=== PATIENT | male | born 1950 | race Caucasian/White ===

== ENCOUNTER 2017-02-08 14:52 | Inpatient (IN) | payer OTHER, MEDICARE ==
[~2017-02-08] VITALS: Ht 162.6 cm; Wt 113.1 kg
[~2017-02-08 14:52] MED LIST: ASPI-730 PO; CLIN-89 PO; MULT1CAP47 PO; PRAV40TA46 PO
--- OUTSIDE RECORDS SUMMARY | 2017-02-08 14:58 | XMS REPORT | Continuity of Care Document ---
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 Name Role Phone JUVE GRIMES MD Primary Care Physician [phone] Insurance Providers Guarantor Terry Balderrama Address [address] [place] [id number] Email DENIED Payer Medicare Policy Number [id number] Subscriber's Name Terry Balderrama Relationship 18 Self Group Number [id number] Effective Date 08 Payer [facility] Policy Number [id number] Subscriber's Name Terry Balderrama Relationship 18 Self Group Number [id number] Chief Complaint and Reason for Visit Chief Complaint Skin Rash/Abscess/Injury Reason for Visit Cellulitis of left hand Problems Active Problems Medical Problem Onset Date Status Cellulitis of left hand Unknown Acute Medications Current Home Medications Medication Dose Units Route Directions Days Qty Instructions Start Date Aspirin 325 Mg Tablet 325 Mg Oral Daily 10/23/08 Clindamycin Hcl 150 Mg Capsule 3 Cap Oral Three Times A Day 7 Days 63 Capsule TAKE WITH A FULL GLASS OF WATER TO AVOID ESOPHAGEAL IRRITATION. Supervising physician Dr. Abraham Romero [employer] [facility] [address] [phone] 11/19/16 Multivitamins W-Minerals (Multivitamin) 1 Cap Capsule 1 Cap Oral Bedtime 10/26/08 Pravastatin Sodium 40 Mg Tablet 40 Mg Oral Bedtime 10/26/08 Social History Social History Problem Response Recorded Date/Time Onset Date Status Hx Alcohol Use Y occ. 05/14/2009 3:50pm Not Applicable Not Applicable Hospital Discharge Instructions No hospital discharge instructions. Plan of Care Discharge Date 11/19/16 1:58pm Disposition 01 DISCHARGED HOME, SELF-CARE Condition at Discharge Stable Instructions/Education Provided Cellulitis (ED) Forms Provided [facility] Work/School Permit Prescriptions See Medication Section Referrals JUVE GRIMES MD Address: [address] [place] [address] [place]ZO, DAVID [phone] Functional Status No functional status results. Allergies, Adverse Reactions, Alerts Allergen Type Severity Reaction Status Last Updated Bacitracin Allergy Unknown RASH Active 11/19/16 Yellow fever vaccine Allergy Intermediate SWELLING OF FEET Active 11/19/16 Polymyxin b Allergy Unknown RASH Active 11/19/16 Immunizations Query Response on File Recorded Date/Time Hx Influenza Vaccination Y fall05/14/09 3:50pm Hx Pneumococcal Vaccination Y 3 yrs ago 05/14/09 3:50pm Hx Influenza Vaccination Y fall05/14/09 3:50pm Influenza Vaccine Hx NO 11/19/16 1:19pm Tetanus Diptheria Vaccine History UP TO DATE 11/19/16 1:19pm Vital Signs Acute Vital Signs Vital Response Date/Time Temperature (Fahrenheit) 97.0 deg F (96.8 - 99.1) 11/19/2016 1:22pm Temperature (Calculated Celsius) 36.15094 degrees C (36.0 - 37.3) 11/19/2016 1:22pm Pulse Rate (adult) 87 bpm (60 - 100) 11/19/2016 1:22pm Respiratory Rate 24 breaths/min (10 - 20) 11/19/2016 1:22pm O2 Sat by Pulse Oximetry 96 % (90 - 100) 11/19/2016 1:22pm Blood Pressure 132/85 mm Hg 11/19/2016 1:22pm Height (Inches) 67.00 inches 11/19/2016 1:22pm Weight (Kilograms) 115.000 kg 11/19/2016 1:22pm Body Mass Index (BMI) 39.0 11/19/2016 1:22pm Results No known relevant diagnostic tests, laboratory data and/or discharge summary. Procedures No known history of procedures. Encounters Encounter Location Arrival/Admit Date Discharge/Depart Date Attending Provider Registered Emergency Room [facility] 11/19/16 1:11pm SAVANNA ROMERO APRN Recent Diagnosis
--- OUTSIDE RECORDS SUMMARY | 2017-02-08 14:58 | XMS REPORT | Continuity of Care Document ---
Author Author [facility] Organization [facility] Address Unknown Phone Unavailable Allergies Active Description Code Type Severity Reaction Onset Reported/Identified Relationship to Patient Clinical Status Yes bacitracin NKMA Severe HIVES/ITCHING 02/05/2014 Yes polymyxin B sulfate NKMA Severe HIVES/ITCHING 02/05/2014 Yes yellow fever vaccine NKMA Severe SPOTS ON FEET AND THEY SWELL 02/05/2014 Medications Problems Procedures Results Encounters ACCT No. Visit Date/Time Discharge Status Pt. Type Provider Facility Loc./Unit Complaint [id number] 12/09/2013 08:23:00 12/09/2013 23 :59:59 [facility] Outpatient [id number] 09/08/2013 08:19:00 09/08/2013 23 :59:59 [facility] Out[facility]
[2017-02-08 15:00] VITALS: PULSE 94; RESP 16
--- NOTE | 2017-02-08 15:00 | NUR ---
ADMIT PATIENT ARRIVES AT 1500 AMBULATORY. ADMITTED TO ROOM 141 FOR CELLULITIS. PATIENT DENIES PAIN OR ANY CONCERNS AT THIS TIME. DRESSING IS REMOVED FROM LEFT FOOT. WOUND CLINIC IS CONSULTED TO TREAT. PATIENT IS RA. NO DISTRESS NOTED.
[2017-02-08] MEDS ORDERED: MILK OF MAGNESIA 30 ML SUSP PO PRN (15:30)
[2017-02-08] MEDS ORDERED: MAG-AL + SIM LIQUID 30 ML UDC PO PRN (15:30)
[2017-02-08] MEDS ORDERED: ACETAMINOPHEN 325 MG TABLET PO PRN (15:30)
[2017-02-08] MEDS ORDERED: PRN ORDERS MC (15:30)
[2017-02-08] MEDS ORDERED: NITROGLYCERIN 0.4 MG SUBLINGUAL TABLET SL PRN (15:30)
[2017-02-08] MEDS ORDERED: ONDANSETRON 4mg/2ml INJECTION IV PRN (15:30)
[2017-02-08] MEDS ORDERED: BISACODYL 10 MG SUPPOSITORY RECTALLY PRN (15:30)
[2017-02-08 15:34] VITALS: Ht 162.6 cm; Wt 113.1 kg
[2017-02-08 15:36] VITALS: BP 162/74; PULSE 94; RESP 18; TEMP 96.7; O2SAT 95
[2017-02-08] MEDS ORDERED: NAPR220C11 PO (15:39)
[2017-02-08 16:01] LABS: BASOPHILS # (AUTO) 0.1 T/MM3 (0-0.2); BASOPHILS % (AUTO) 0.5 % (0-2); EOSINOPHILS # (AUTO) 0.4 T/MM3 (0-0.5); EOSINOPHILS % (AUTO) 2.8 % (0-4); HCT - HEMATOCRIT 42.6 % (41-53); HGB - HEMOGLOBIN 14.3 GM/DL (13.5-17.5); IMMATURE GRANULOCYTE # (AUTO) 0.08 T/MM3 (0.00-0.03); IMMATURE GRANULOCYTE % (AUTO) 0.6 % (0.0-0.5); LYMPHOCYTES # (AUTO) 2.5 T/MM3 (1-4.8); LYMPHOCYTES % (AUTO) 19.9 % (23-45); MEAN CORPUSCULAR HGB 30.7 UUG (26-34); MEAN CORPUSCULAR HGB CONC(MCHC 33.6 GM/DL (31-37); MEAN CORPUSCULAR VOLUME 91.4 UM3 (80-100); MEAN PLATELET VOLUME 7.9 UM3 (9.4-12.4); MONOCYTES # (AUTO) 1.1 T/MM3 (0-0.8); MONOCYTES % (AUTO) 9.1 % (0-9.0); NEUTROPHILS #(AUTO)-ABSOLUTE 8.4 T/MM3 (1.8-7.7); NEUTROPHILS % (AUTO) 67.1 % (33-66); RED BLOOD COUNT 4.66 M/MM3 (4.50-5.90); WBC - WHITE BLOOD COUNT 12.5 T/MM3 (4.5-11.0)
[2017-02-08 16:03] LABS: ALBUMIN 3.8 G/DL (3.5-5.0); ALKALINE PHOSPHATASE 93 U/L (38-126); ALT (SGPT) 54 U/L (21-72); ANION GAP 14 MEQ/L (5-15); AST (SGOT) 37 U/L (17-59); BUN/CREATININE RATIO 28 RATIO (6-26); CALCIUM 9.6 MG/DL (8.4-10.2); CHLORIDE 101 MEQ/L (98-107); CO2 - CARBON DIOXIDE 28 MEQ/L (22-30); CREATININE 0.8 MG/DL (0.8-1.5); GLOMERULAR FILTRATION RATE 97; GLUCOSE 141 MG/DL (75-110); SODIUM 143 MEQ/L (134-144); TOTAL PROTEIN 7.5 G/DL (6.3-8.2)
[2017-02-08 16:04] LABS: LACTATE - LACTIC ACID 1.3 MMOL/L (0.6-2.2)
--- NOTE | 2017-02-08 16:29 | HPPDOC ---
JORGE HUGO V [employer]GY SYSTEM INSTALLER 02/08/17 1609: HPI - Adult Date DATE: 02/08/17 TIME: 16:04 General Chief Complaint: LEFT lower ext ulcer History of Present Illness Patient is a 66-year-old male who presented to his primary care provider, Dr. Rl Sahu today for evaluation of ulcer to the left lower extremity. Patient has had a history of venous stasis ulcers in the past. He states that approximately 5 days ago he noticed a small blister in the medial aspect of the left foot. He states that he started wearing his compression stockings and popped the blister. Over the last 48 hours. This area has become more red, swollen and tender. Today he was unable to ambulate without significant pain. Thus presented to primary care for further evaluation and treatment. [facility], however, due to the concern for further inpatient workup. The hospitalist services were contacted directly and accepted patient for direct admission as an inpatient for further eval patient and treatment. It is expected that his stay will be greater than 2 overnights. Initial laboratory studies were obtained on admission. Was found to have an elevated white count at 12.5, hemoglobin 14.3, hematocrit 42.6, platelet count 282, 67% neutrophils. Sodium is normal at 143, potassium 4.0, BUN 22, creatinine 0.8, glucose 141. Venous lactate is normal at 1.3, pro- calcitonin is pending. Past Medical History Past Medical History Hypertension. BPH Hyperlipidemia Depression History of venous stasis ulcer to the right lower extremity. COPD Metabolic syndrome Obstructive sleep apnea. Chronic tobacco dependence. History of renal artery aneurysm Fatty liver disease History of DVT Surgical History Patient's Surgical History: Right inguinal hernia repair-02/2008 (Dr. Mckinney) Right ruptured appendectomy-06/2008 (Dr. Mckinney) Colonoscopy-2008 Current Medications Home Meds Active Scripts Clindamycin HCl (Clindamycin HCl) 150 Mg Capsule, 3 CAP PO TID for 7 Days, #63 CAP TAKE WITH A FULL GLASS OF WATER TO AVOID ESOPHAGEAL IRRITATION. Supervising physician Dr. Abraham Romero Clinical Quality Analyst [facility] [address] [phone] Prov:SAVANNA ROMERO [employer] SYSTEM INST[employer]ER 11/19/16 Reported Medications Naproxen Sodium (Aleve) 220 Mg Capsule, 1 CAP PO Y for PAIN, CAP 5/4/17 Multivitamins W-Minerals (Multivitamin) 1 Cap Capsule, 1 CAP PO HS 10/26/08 Aspirin (Aspirin) 325 Mg Tablet, 325 MG PO DAILY 10/23/08 Pravastatin Sodium (Pravastatin Sodium) 40 Mg Tablet, 40 MG PO HS 10/26/08 Allergies: Coded Allergies: yellow fever vaccine live (Verified Allergy, Intermediate, SWELLING OF FEET, 11/19/16) bacitracin (Verified Allergy, Unknown, RASH, 11/19/16) polymyxin B (Verified Allergy, Unknown, RASH, 11/19/16) Family History Family History: Mother-bowel obstruction. Father-coronary artery disease with cardiac bypass. Sister- Jeanne Gehrig's disease. Niece- MS Social History Smoking Status: Current every day smoker # of Packs/Tins per Day: 0.5 # of Years: 50 Substance Use Type: does not use Alcohol Intake: none Housing: house Advance Directives: Yes Full Code, No DPOA for Healthcare Only Social History Comments PCP Dr. Rl Sahu General Surgeon- Dr. Mckinney Review of Systems Integumentary Skin: see HPI, ulcers (left medial malleolus) All Other Systems All Other Systems: Reviewed (remainder of 10-point ROS Neg.) Physical Exam General General Nourishment: well nourished, well developed Vital Signs Vital Signs Date Time Temp Pulse Resp B/P Pulse Ox O2 Delivery O2 Flow Rate FiO2 02/08/17 15:36 96.7 94 18 162/74 95 Room Air Height (Feet): 5 Height (Inches): 4.00 Eyes Brief: FOUND: EOMI Respiratory Brief: FOUND: clear all martines, equal bilaterally Cardiovascular (brief) Cardiac Brief: FOUND: pedal edema (L>R referral edema), regular rate, regular rhythm, NOT FOUND: murmur Abdomen (brief) Abdominal Brief: FOUND: BS normo active x4, soft, NOT FOUND: distended, tender Integumentary (brief) Integumentary Brief: FOUND: dry, pink, warm Neurologic (brief) Neurological Brief: FOUND: cranial 2-12 intact Neurologic RN Documented GCS Eye Opening: Verbal: Motor: Total: Psychiatric (brief) FOUND: alert, attentive, normal affect, oriented Laboratory Laboratory Tests Test 02/08/17 15:38 White Blood Count 12.5T/MM3 Red Blood Count 4.66M/MM3 Hemoglobin 14.3GM/DL Hematocrit 42.6% Mean Corpuscular Volume 91.4UM3 Mean Corpuscular Hemoglobin 30.7UUG Mean Corpuscular Hemoglobin Concent 33.6GM/DL RDW Standard Deviation 50.1FL Platelet Count 282T/MM3 Mean Platelet Volume 7.9UM3 Immature Granulocyte % (Auto) 0.6% Neutrophils (%) (Auto) 67.1% Lymphocytes (%) (Auto) 19.9% Monocytes (%) (Auto) 9.1% Eosinophils (%) (Auto) 2.8% Basophils (%) (Auto) 0.5% Absolute Immature Granulocyte (auto 0.08T/MM3 Absolute Neutrophils (auto) 8.4T/MM3 Absolute Lymphocytes (auto) 2.5T/MM3 Absolute Monocytes (auto) 1.1T/MM3 Absolute Eosinophils (auto) 0.4T/MM3 Absolute Basophils (auto) 0.1T/MM3 Turbidity < 20 Sodium Level 143MEQ/L Potassium Level 4.0MEQ/L Chloride Level 101MEQ/L Carbon Dioxide Level 28MEQ/L Anion Gap 14MEQ/L Blood Urea Nitrogen 22.0MG/DL Creatinine 0.8MG/DL Glomerular Filtration Rate Calc 97 BUN/Creatinine Ratio 28RATIO Glucose Level 141MG/DL Calculated Osmolality 280MOSM/KG Calcium Level 9.6MG/DL Magnesium Level 2.0MG/DL Total Bilirubin 0.50MG/DL Icterus Index < 2 Aspartate Amino Transf (AST/SGOT) 37U/L Alanine Aminotransferase (ALT/SGPT) 54U/L Alkaline Phosphatase 93U/L Total Protein 7.5G/DL Albumin 3.8G/DL Globulin 3.7G/DL Albumin/Globulin Ratio 1.0RATIO Plasma Lactate 1.3MMOL/L Chemistry Specimen Hemolysis < 15 Sepsis Diagnostic Criteria Sepsis Confirmed/Suspected Infection: Yes SIRS Criteria: WBC >=12,000 or <=4,000 Assessment & Plan Problems: (1) Ulcer of lower extremity Status: Acute Qualifiers: Laterality: left Non-pressure ulcer stage: unspecified non-pressure ulcer stage Qualified Codes: L97.929 - Non-pressure chronic ulcer of unspecified part of left lower leg with unspecified severity (2) Cellulitis Status: Acute Qualifiers: Site of cellulitis of extremity: lower extremity Laterality: left (3) Leukocytosis Status: Acute Assessment & Plan: Present on admission (4) Hypertension Status: Chronic (5) Hyperlipidemia Status: Chronic (6) COPD (chronic obstructive pulmonary disease) Status: Chronic (7) Obstructive sleep apnea Status: Chronic (8) BPH (benign prostatic hyperplasia) Status: Chronic (9) Tobacco dependence Status: Chronic (10) Renal artery aneurysm Status: Resolved (11) History of DVT (deep vein thrombosis) Status: Resolved Plan/Intensity of Service Admit patient to inpatient status under the care of Dr. Lang for venous stasis of left lower extremity with cellulitis. Obtain the following laboratory studies on admission. CBC, CMP, venous lactate, pro calcitonin, magnesium, blood culture, pro calcitonin. Also obtain a hemoglobin A1c for laboratory completeness. Initiate patient on the fluoroscopy IV every 12 hours for antimicrobial coverage. Wound team consultation placed for further evaluation and treatment recommendations. Will obtain a venous Doppler of the left lower extremity to rule out acute DVT. Will's criteria score 5 out of 9 with a 53% likelihood of acute thrombosis Lovenox subcutaneous daily for DVT prophylaxis. Zofran as needed for nausea and [place] available as needed for pain control. He may use home CPAP. Given history of sleep apnea Will recheck CBC and BMP tomorrow morning to follow blood counts, renal function and electrolytes Will discuss further plan of care with attending, Dr. Lang. At time of discharge medical care will return to primary care provider, Dr. Sahu DVT Prophylaxis: Lovenox Code Status Full Code, unverified Hospital Course Summary Disclaimer The hospital course summary below is not to be considered part of the above Progress Note. Hospital Course Summary Admit patient to inpatient status under the care of Dr. Lang for venous stasis of left lower extremity with cellulitis. Obtain the following laboratory studies on admission. CBC, CMP, venous lactate, pro calcitonin, magnesium, blood culture, pro calcitonin. Also obtain a hemoglobin A1c for laboratory completeness. Initiate patient on the fluoroscopy IV every 12 hours for antimicrobial coverage. Wound team consultation placed for further evaluation and treatment recommendations. Will obtain a venous Doppler of the left lower extremity to rule out acute DVT. Will's criteria score 5 out of 9 with a 53% likelihood of acute thrombosis Lovenox subcutaneous daily for DVT prophylaxis. Zofran as needed for nausea and [place] available as needed for pain control. He may use home CPAP. Given history of sleep apnea Will recheck CBC and BMP tomorrow morning to follow blood counts, renal function and electrolytes Will discuss further plan of care with attending, Dr. Lang. At time of discharge medical care will return to primary care provider, YEISON Baugh MD 02/08/17 2017: Past Medical History Current Medications Home Meds Active Scripts Clindamycin HCl (Clindamycin HCl) 150 Mg Capsule, 3 CAP PO TID for 7 Days, #63 CAP TAKE WITH A FULL GLASS OF WATER TO AVOID ESOPHAGEAL IRRITATION. Supervising physician Dr. Abraham Romero Clinical Quality Analyst [facility] [address] [phone] Prov:SAVANNA ROMERO [place] [employer] SYSTEM INST[employer]ER 11/19/16 Reported Medications Naproxen Sodium (Aleve) 220 Mg Capsule, 1 CAP PO Y for PAIN, CAP 02/08/17 Multivitamins W-Minerals (Multivitamin) 1 Cap Capsule, 1 CAP PO HS 10/26/08 Aspirin (Aspirin) 325 Mg Tablet, 325 MG PO DAILY 10/23/08 Pravastatin Sodium (Pravastatin Sodium) 40 Mg Tablet, 40 MG PO HS 10/26/08 Allergies: Coded Allergies: yellow fever vaccine live (Verified Allergy, Intermediate, SWELLING OF FEET, 11/19/16) bacitracin (Verified Allergy, Unknown, RASH, 11/19/16) polymyxin B (Verified Allergy, Unknown, RASH, 11/19/16) Assessment & Plan Plan/Intensity of Service Have independently interviewed and examined pt. Chart reviewed. 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 Care plan developed with my supervision; agree with above. Developed a small blister on his left lower leg about 5 days ago. No pain or itching. Some increase LE edema, so resumed use of his support hose. Unfortunately, that opened up the blister. Has had significant problems in past with venous stasis ulcers and slow healing. Went in promptly to clinic for evaluation. WBC with elevation. Lymph nodes present in groin. Inpatient admission sought to speed resolution of healing of his ulcer and cellulitis. No leg pain. Not having f/c. Breathing stable without increased SOA or cough. No hemoptysis. Denies chest pressure, pain, palpitations. Bowel stable. No falls or trauma. Lungs: decreased CV: regular AB: soft Obese NT/ND +BS EXT: left leg wrapped in CHEL from wound team MSE: awake alert appropriate Plan: Inpatient admission. Teflaro for wound coverage and cellulitis. Wound Team evaluation. Tobacco cessation. Doppler to exclude clot due to edema. Monitor lab. JORGE HUGO APRN February 08, 2017 16:09 YEISON LANG MD February 08, 2017 20:17
[2017-02-08] MEDS ORDERED: HYDROCODONE/APAP 5 mg/325 mg TABLET PO PRN (16:30)
[2017-02-08 16:42] VITALS: PULSE 94; RESP 18; O2SAT 95
--- NOTE | 2017-02-08 17:00 | PDWOUND ---
Wound Documentation Wound Management Wound : Location Modifier: Left, Medial Wound Location: Ankle Wound Type: Stasis Ulcer Wound Dressing Frequency: two times per week Wound Duration: 3 days Wound Dressing Status: FOUND: Moist Wound Drainage Amount: Moderate Wound Drainage Description: Serous Wound Drainage Odor: None/Absent Wound General Appearance: FOUND Unapproximated Wound Bed: gran red Periwound Description: Bright Red, Shiny Wound Length (cm): 2.5 Wound Width (cm): 2 Wound Depth (cm): 0.1 Exposed: partial Wound Cleanser: NS Wound Primary Dressing Type: Aquacel AG, Mepilex, Jim Wraps Comments Pt is know to the wound clinic for Venous Leg Ulcers, at this time pt has a new open wound venous. Wound cleaned, Aqacell AG applied to wound bed and covered with Mepilex. Jim wraps applied for compression. KANDI DIAZ RN February 08, 2017 17:00
[2017-02-08] MEDS: CEFTAROLINE IV SCH (17:24)
[2017-02-08] MEDS: NORMAL SALINE IV SCH (17:24)
[2017-02-08] MEDS: ENOXAPARIN 40 MG/0.4 ML INJECTION SQ SCH (17:25)
--- NOTE | 2017-02-08 18:20 | NUR ---
STATUS PATIENT IS RESTING IN BED IN NO APPARENT DISTRESS. WOUND CLINIC HAS ADDRESSED THE PATIENT'S WOUND. ULTRA SOUND HAS BEEN AT BED SIDE FOR DVT R/O TO LLE. PATINE HAS NO CONCERNS AT THIS TIME.
[2017-02-08] MEDS: PRAVASTATIN 40 MG TABLET PO SCH (21:13)
[2017-02-08 21:55] VITALS: PULSE 78
[2017-02-09 00:03] VITALS: BP 128/68; PULSE 87; RESP 18; TEMP 98; O2SAT 92
[2017-02-09] MEDS: CEFTAROLINE IV SCH ×2 (03:52→15:17)
[2017-02-09] MEDS: NORMAL SALINE IV SCH ×2 (03:52→15:17)
[2017-02-09 05:21] LABS: BASOPHILS # (AUTO) 0.1 T/MM3 (0-0.2); BASOPHILS % (AUTO) 0.5 % (0-2); EOSINOPHILS # (AUTO) 0.3 T/MM3 (0-0.5); EOSINOPHILS % (AUTO) 3.1 % (0-4); HCT - HEMATOCRIT 42.5 % (41-53); IMMATURE GRANULOCYTE # (AUTO) 0.12 T/MM3 (0.00-0.03); IMMATURE GRANULOCYTE % (AUTO) 1.1 % (0.0-0.5); LYMPHOCYTES # (AUTO) 2.7 T/MM3 (1-4.8); LYMPHOCYTES % (AUTO) 24.5 % (23-45); MEAN CORPUSCULAR HGB 30.4 UUG (26-34); MEAN CORPUSCULAR HGB CONC(MCHC 32.9 GM/DL (31-37); MEAN CORPUSCULAR VOLUME 92.2 UM3 (80-100); MEAN PLATELET VOLUME 8.1 UM3 (9.4-12.4); MONOCYTES # (AUTO) 1.1 T/MM3 (0-0.8); MONOCYTES % (AUTO) 9.6 % (0-9.0); NEUTROPHILS #(AUTO)-ABSOLUTE 6.7 T/MM3 (1.8-7.7); NEUTROPHILS % (AUTO) 61.2 % (33-66); RED BLOOD COUNT 4.61 M/MM3 (4.50-5.90)
[2017-02-09 05:30] LABS: ANION GAP 10 MEQ/L (5-15); BUN/CREATININE RATIO 28 RATIO (6-26); CALCIUM 9.6 MG/DL (8.4-10.2); CHLORIDE 103 MEQ/L (98-107); CO2 - CARBON DIOXIDE 30 MEQ/L (22-30); CREATININE 0.9 MG/DL (0.8-1.5); GLOMERULAR FILTRATION RATE 85; GLUCOSE 129 MG/DL (75-110); POTASSIUM 3.7 MEQ/L (3.6-5); SODIUM 143 MEQ/L (134-144)
--- NOTE | 2017-02-09 06:45 | NUR ---
SUMMARY PT SLEPT WELL THIS SHIFT. USED HIS CPAP FROM AROUND MIDNIGHT. NO PRN MEDICATION GIVEN THIS SHIFT. REPORTED PAIN 2/10 ON HER LOWER EXTREMITIES THAT HE IS TOLERATING. PT IS UP AD ABIMBOLA IN THE ROOM. TOILETS HIMSELF WITH NO DIFFICULTY. EDUCATED ABOUT CALL LIGHT AND PT SAFETY.
[2017-02-09 07:19] VITALS: BP 133/74; PULSE 83; RESP 16; TEMP 96.5; O2SAT 92
[2017-02-09 07:55] LABS: BLOOD, URINE NEGATIVE (NEGATIVE); COLOR,URINE YELLOW (YELLOW); LEUKOCYTE ESTERASE ,URINE NEGATIVE (NEGATIVE); NITRITE,URINE NEGATIVE (NEGATIVE); UROBILINOGEN,URINE 0.2 EU/DL (NORMAL)
[2017-02-09] MEDS: ASPIRIN 325 MG TABLET PO SCH (08:18)
[2017-02-09] MEDS: ENOXAPARIN 40 MG/0.4 ML INJECTION SQ SCH (08:19)
--- NOTE | 2017-02-09 08:47 | DI ---
Indication: ITS.REASON: LLE swelling, erythema PROCEDURE: US VENOUS DUPLEX, LOWER EXT LT: Encounter: Initial Comparison: None Technique: Color Doppler duplex and grayscale sonographic imaging of the left lower extremity was performed. Findings: There is no evidence for acute deep venous thrombosis in the left thigh. Specifically, serial graded compression was performed from the inguinal ligament to the popliteal bifurcation, on the left thigh, demonstrating appropriate compressibility of the deep venous system. In addition, color and pulsed Doppler demonstrate appropriate spontaneous flow, variation with respiration, and augmentation with calf compression. At the ankle, normal flow is identified in the posterior tibial veins; these vessels are also normal in caliber. Prominent lymph node in the left groin area measuring up to 1 cm in short axis dimension could be reactive. Impression: No evidence of acute DVT in the left lower limb. .
--- NOTE | 2017-02-09 11:33 | NUR ---
STAPH INFECTION PT HAS A STAPH INFECTION IN THE LEFT LOWER EXTREMITY VENOUS ULCER. DR. RODAS WAS NOTIFIED. NO ORDERS WERE RECEIVED.
--- NOTE | 2017-02-09 12:24 | NUR ---
CM CM IN TO VISIT WITH PT. CM EXPLAINED ROLE AND PROVIDED CONTACT INFORMATION. PT DENIES HOME NEEDS AND IS AWARE TO CONTACT CM SHOULD NEEDS ARISE.
--- NOTE | 2017-02-09 14:10 | PNPDOC ---
JORGE HUGO V WASTEWATER PLANT OPERATOR 02/09/17 1401: Subjective Date DATE: 02/09/17 TIME: 13:57 Subjective Terry is seen this afternoon in follow-up. He states that he is having increased discomfort in his left lower extremity around his lateral aspect of the foot. He states that this got worse overnight and he thought that this may be related to increased swelling. Denies feeling chest pain, shortness of breath or GI complaints. Objective Vital Signs Vital signs Vital Signs Date Time Temp Pulse Resp B/P Pulse Ox O2 Delivery O2 Flow Rate FiO2 02/09/17 07:19 96.5 83 16 133/74 92 Room Air Height (Feet): 5 Height (Inches): 4.00 Weight (Kilograms): 114.400 General General Appearance: Alert, Orientated x 3, Cooperative, No Acute Distress Eyes (Brief) Eyes: FOUND: EOMI ENMT (Brief) ENMT: FOUND: mucosa moist, normal dentition, NOT FOUND: pharnyx erythema Neck (Brief) Neck: FOUND: midline, NOT FOUND: adenopathy, carotid bruits, tracheal deviation Respiratory (Brief) Respiratory: FOUND: clear all martines, equal bilaterally, NOT FOUND: wheezes Cardiovascular (Brief) Cardiac: FOUND: regular rate, regular rhythm, NOT FOUND: murmur, pedal edema Capillary Refill: <2 sec Abdomen (Brief) Abdominal: FOUND: BS normo active x4, soft, NOT FOUND: distended, tender Extremities (Brief) Extremity : Side: Left Extremity: leg Extremity Finding: FOUND: edema, pain, reddened, warm Comments Blister like area to the medial malleolus region of the left lower extremity Lymphatic (Brief) Lymphatic: NOT FOUND: adenopathy Musculoskeletal (Brief) Musculoskeletal: NOT FOUND: tenderness Integumentary (Brief) Integumentary: FOUND: dry, pink, warm Neurologic (Brief) Neurological: FOUND: cranial 2-12 intact Psychiatric (Brief) Psychiatric: FOUND: alert, attentive, normal affect, oriented Laboratory Laboratory Laboratory Tests 02/08/17 15:38 02/09/17 04:48 Laboratory Tests 02/08/17 15:38 02/09/17 04:48 Microbiology Microbiology Microbiology Date/Time Source Procedure Growth Status 02/08/17 15:44 Peripheral/Iv Start Blood Culture - Preliminary CULTURE INITIATED - RESULTS PENDING Resulted 02/08/17 15:38 Peripheral/Iv Start Blood Culture - Preliminary CULTURE INITIATED - RESULTS PENDING Resulted Sepsis Diagnostic Criteria Sepsis Confirmed/Suspected Infection: Yes SIRS Criteria: WBC >=12,000 or <=4,000 Assessment & Plan Problems: (1) Ulcer of lower extremity Status: Acute Qualifiers: Laterality: left Non-pressure ulcer stage: unspecified non-pressure ulcer stage Qualified Codes: L97.929 - Non-pressure chronic ulcer of unspecified part of left lower leg with unspecified severity (2) Cellulitis Status: Acute Qualifiers: Site of cellulitis of extremity: lower extremity Laterality: left (3) Leukocytosis Status: Acute Assessment & Plan: Present on admission (4) Hypertension Status: Chronic (5) Hyperlipidemia Status: Chronic (6) COPD (chronic obstructive pulmonary disease) Status: Chronic (7) Obstructive sleep apnea Status: Chronic (8) BPH (benign prostatic hyperplasia) Status: Chronic (9) Tobacco dependence Status: Chronic (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 A preliminary wound culture was received from Dr. Sahu office today. It was taken from the external aspect of the left extremity wound. The initial preliminary culture did indicate staph aureus, however, it is suspicious that this may be a superficial from skin. Appreciate Dr Patel consultation for surgical recommendation. Continue with Vocalyticsll with Mepilex and Jim wrap for compression Ultrasound for venous Doppler was negative for acute DVT. Hgb A1c was found to be 6.5. Avant as needed for pain control Review today's laboratory studies. Leukocytosis did improve and white count today is 11. Will recheck CBC and BMP tomorrow morning to follow blood counts, renal function and electrolytes. Code Status Full Code, unverified Hospital Course Summary Disclaimer The hospital course summary below is not to be considered part of the above Progress Note. Hospital Course Summary Admit patient to inpatient status under the care of Dr. Lang for venous stasis of left lower extremity with cellulitis. Obtain the following laboratory studies on admission. CBC, CMP, venous lactate, pro calcitonin, magnesium, blood culture, pro calcitonin. Also obtain a hemoglobin A1c for laboratory completeness. Initiate patient on Teflaro IV every 12 hours for antimicrobial coverage. Wound team consultation placed for further evaluation and treatment recommendations. Will obtain a venous Doppler of the left lower extremity to rule out acute DVT. Wells criteria score 5 out of 9 with a 53% likelihood of acute thrombosis Lovenox subcutaneous daily for DVT prophylaxis. Zofran as needed for nausea and Avant available as needed for pain control. He may use home CPAP. Given history of sleep apnea Will recheck CBC and BMP tomorrow morning to follow blood counts, renal function and electrolytes Will discuss further plan of care with attending, Dr. Lang. At time of discharge medical care will return to primary care provider, Dr. Sahu 02/09/17 Continue with Teflaro BID for antimicrobial coverage. A preliminary wound culture was received from Dr. Sahu office today. It was taken from the external aspect of the left extremity wound. The initial preliminary culture did indicate staph aureus, however, it is suspicious that this may be a superficial from skin. Appreciate Dr Patle consultation for surgical recommendation. Continue with Aqacell AG with Mepilex and Jim wrap for compression Ultrasound for venous Doppler was negative for acute DVT. Hgb A1c was found to be 6.5. Avant as needed for pain control Review today's laboratory studies. Leukocytosis did improve and white count today is 11. Will recheck CBC and BMP tomorrow morning to follow blood counts, renal function and electrolytes. YEISON LANG MD 02/09/17 1603: Assessment & Plan Plan/Intensity of Service Have independently interviewed and examined pt. Chart reviewed. Case discussed with CM, Dr Mckinney, and my WASTEWATER PLANT OPERATOR. Care plan developed with my supervision; agree with above. Doing okay this afternoon. Notes minimal pain and discomfort to leg. No f/c. Breathing well-not having SOA, cough or congestion. No chest pressure or pain. Samir ab pain or nausea. No diarrhea. Lungs: decreased, no distress CV: regular AB: soft obese, nt/nd +BS EXT: leg wrapped in JIM. MSE: awake alert appropriate Plan; Continue with Teflaro for coverage of cellulitis. Dr Mckinney consulted for wound evaluations. Continue Wound care - Aqacell AG with Mepilex and Jim wrap for compression. US negative for DVT - continue Lovenox 40mg SQ daily for DVT prevention. Recheck CBC in am due to resolving leukocytosis. Hope for discharge in near future if wound makes improvement. DVT Prophylaxis: Lovenox JORGE HUGO V WASTEWATER PL[employer] OPERATOR February 09, 2017 14:01 YEISON LANG MD February 09, 2017 16:03
[2017-02-09] MEDS ORDERED: PNEUMOCOCCAL 13 VACCINE 0.5 ML SYRINGE IM ONE (15:45)
[2017-02-09 15:54] VITALS: BP 143/84; PULSE 86; RESP 18; TEMP 97.5; O2SAT 94
[2017-02-09] MEDS ORDERED: PNEUMOCOCCAL VAC. ADMIN. CHARGE INJ ONE (16:00)
--- NOTE | 2017-02-09 16:00 | NUR ---
PNEUMONOCOCCAL VACCINE PT HAD HISTORY OF ALLERGY REACTION TO YELLOW FEVER VACCINE LIVE. PHARMACY WAS NOTIFIED. PT WAS ABLE TO RECEIVE THE PNEUMONOCOCCAL VACCINE BECAUSE HE RECEIVED IN THE PAST (PT DOES NOT REMEMBER WHEN) AND HE DID NOT HAVE ANY ALLERGY REACTION TO IT.
--- NOTE | 2017-02-09 17:41 | NUR ---
SHIFT SUMMARY PT IS RESTING IN THE BED WATCHING A MOVIE AT THIS TIME. PT IS ALERT AND ORIENTED X3. RA DURING THE DAY. PT GETS UP BY HIMSELF. CALL PT CALLS WHEN NEEDED. PT HAS GOOD PO INTAKE. PT DID NOT COMPLAIN OF PAIN TODAY. PT COOPERATES WITH CARE. PT HAS A VENOUS ULCER IN HIS LEFT LOWER EXTREMITY. DRESSING IN PLACE. CHEL WRAP FROM KNEE TO FOOT. LIGHT WITHIN REACH.
--- NOTE | 2017-02-09 18:04 | PNF ---
DATE OF SERVICE 02/09/2017 FINDINGS Mr. Balderrama is a 66-year-old gentleman who is well known to my surgical/wound care practice. The patient does have a longstanding history for venous ulcer disease. Patient states that recently he began to notice a "pinhole" ulcer involving his left ankle. The patient states that he made the mistake of putting on his compression stocking and had developed a large blister involving his left ankle. The patient has had significant wound complications in the past and therefore sought out medical attention in a fairly timely fashion. He did also state that he began to notice some redness involving the left lower extremity. He denied any fever or chills. This new ulceration is tender in nature. PAST MEDICAL HISTORY Chronic Illness/System Disorders 1. History of chronic venous hypertension involving lower extremities with associated venous ulcer disease. 2. History of hypertension. 3. History of BPH. 4. History for depression. 5. History for obstructive sleep apnea. 6. History of DVT. PAST SURGICAL HISTORY Inguinal hernia repair. Appendectomy. Colonoscopy. MEDICATIONS Clindamycin. Naproxen. Multivitamin. Aspirin. Pravastatin. For exact doses and frequencies please refer to the [facility] ALLERGIES "Yellow Fever vaccine." Bacitracin. Polymyxin B. FAMILY HISTORY Noncontributory. Patient does have a family history for cardiac disease in a sister with ALS. SOCIAL HISTORY The patient smokes tobacco. States he smokes about one-half pack a day. REVIEW OF SYSTEMS Review of systems was undertaken with the patient and was essentially negative except as stated in Findings and Past Medical History section for CONSTITUTIONAL,HEENT, CARDIAC, RESPIRATORY, GI, , MUSCULOSKELETAL, HEMATOLOGIC/ONCOLOGIC. PHYSICAL EXAMINATION GENERAL: Mr. Balderrama is a 66-year-old male who today did not appear to be in acute distress. VITAL SIGNS: Temperature 96.5, pulse 83, respirations 16, blood pressure 133/74, SAO2 92% on room air. HEENT: Normocephalic. Pupils are equally round and react to light and accommodation. NECK: Supple without lymphadenopathy. CHEST: Clear to auscultation bilaterally. HEART: Regular rate and rhythm. Normal S1 and S2 without gallops, murmurs or clicks. ABDOMEN: Abdomen soft, nontender. No evidence for hepatomegaly. EXTREMITIES: Without clubbing or cyanosis. Attention was then focused to the lower extremities. Skin is hemosiderin-laden consistent with his history for chronic venous hypertension. There was a dressing present involving the left medial malleolar region. Dressing was removed. The patient does have an area that has "blistered" and the epidermis has "sloughed." This area of concern is on the order of 3-4 cm in diameter and is again involving the left medial malleolar region. There is a slight component of some erythema surrounding this ulceration. NEURO: Cranial nerves II-XII grossly intact. Patient is without focal motor or sensory deficits. LABORATORY/RADIOGRAPHIC EVALUATION The patient had a CBC upon admission as well as a repeat CBC today. No marked abnormalities were noted. White count 11.0. Hemoglobin 14.0. CMP was obtained and a procalcitonin level upon admission. Lab essentially within normal limits. BUN slightly elevated at 22.0. Procalcitonin not elevated at 0.06. ASSESSMENT 66-year-old gentleman with chronic venous hypertension with associated ulceration and cellulitis. PLAN I have reviewed the current orders. Agree with current plan. The patient is on broad-spectrum antibiotics consisting of Teflaro 600 mg IV q.12h. From a wound standpoint, orders have been written to place Silver Aquacel overlying the wound followed by an Allevyn foam dressing. This could be changed on roughly an every [id number] basis depending upon the amount of drainage that is present. Prior to the patient's discharge. Will have the wound staff apply a 3M multilayer wrap in conjunction with an advanced wound dressing to facilitate healing. We will be more than happy to see the patient in followup in our wound center following his discharge. I am not planning on seeing the patient over the course of the weekend. If any surgical issue should arise, please contact Dr. Rajput. COURTNEY
[2017-02-09] MEDS: PRAVASTATIN 40 MG TABLET PO SCH (21:02)
[2017-02-09 23:43] VITALS: BP 137/76; PULSE 79; RESP 20; TEMP 98; O2SAT 94
--- NOTE | 2017-02-10 00:53 | NUR ---
Chart Check 24 hour chart check completed
[2017-02-10] MEDS: CEFTAROLINE IV SCH (02:58)
[2017-02-10] MEDS: NORMAL SALINE 500 ML IV PRN (02:58)
[2017-02-10] MEDS: NORMAL SALINE IV SCH (02:58)
[2017-02-10 05:13] LABS: BASOPHILS # (AUTO) 0.1 T/MM3 (0-0.2); BASOPHILS % (AUTO) 0.5 % (0-2); EOSINOPHILS # (AUTO) 0.4 T/MM3 (0-0.5); EOSINOPHILS % (AUTO) 2.7 % (0-4); HCT - HEMATOCRIT 43.2 % (41-53); HGB - HEMOGLOBIN 14.1 GM/DL (13.5-17.5); IMMATURE GRANULOCYTE # (AUTO) 0.11 T/MM3 (0.00-0.03); IMMATURE GRANULOCYTE % (AUTO) 0.9 % (0.0-0.5); LYMPHOCYTES # (AUTO) 2.6 T/MM3 (1-4.8); LYMPHOCYTES % (AUTO) 20.7 % (23-45); MEAN CORPUSCULAR HGB CONC(MCHC 32.6 GM/DL (31-37); MEAN CORPUSCULAR VOLUME 91.9 UM3 (80-100); MEAN PLATELET VOLUME 8.1 UM3 (9.4-12.4); MONOCYTES # (AUTO) 1.3 T/MM3 (0-0.8); MONOCYTES % (AUTO) 10.3 % (0-9.0); NEUTROPHILS #(AUTO)-ABSOLUTE 8.3 T/MM3 (1.8-7.7); NEUTROPHILS % (AUTO) 64.9 % (33-66); WBC - WHITE BLOOD COUNT 12.8 T/MM3 (4.5-11.0)
--- NOTE | 2017-02-10 05:18 | NUR ---
STATUS PATIENT IS ALERT AND ORIENTEDX3. PATIENT SLEPT WELL THIS SHIFT. USED HIS CPAP DURING SLEEP. NO PRN MEDICATION GIVEN THIS SHIFT.PATIENT IS UP AD ABIMBOLA IN THE ROOM..ON ROOM AIR .DENIES PAIN, CHEST PAIN,SOA,OR N/V.DRESSING IN PLACE.DRESSING DRY , INTACT.CHEL WRAP FROM KNEE TO FOOT. CALL LIGHT WITHIN REACH.BED IN LOW POSITION. CONTINUE TO MONITOR.
[2017-02-10 05:21] LABS: ANION GAP 12 MEQ/L (5-15); BUN/CREATININE RATIO 26 RATIO (6-26); CALCIUM 9.5 MG/DL (8.4-10.2); CHLORIDE 102 MEQ/L (98-107); CO2 - CARBON DIOXIDE 27 MEQ/L (22-30); CREATININE 0.8 MG/DL (0.8-1.5); GLOMERULAR FILTRATION RATE 97; GLUCOSE 119 MG/DL (75-110); POTASSIUM 3.8 MEQ/L (3.6-5); SODIUM 141 MEQ/L (134-144)
[2017-02-10 07:59] VITALS: BP 125/80; PULSE 73; RESP 18; TEMP 97.7; O2SAT 95
[2017-02-10] MEDS: ASPIRIN 325 MG TABLET PO SCH (09:07)
[2017-02-10] MEDS: ENOXAPARIN 40 MG/0.4 ML INJECTION SQ SCH (09:08)
[2017-02-10] MEDS ORDERED: VANCOMYCIN 1,000 MG in NORMAL SALINE 250 ML IV ONE (11:00)
--- NOTE | 2017-02-10 11:01 | PNPDOC ---
JEANNETTE LONG MILKING MACHINE MECHANIC 02/10/17 1053: Subjective Date DATE: 02/10/17 TIME: 10:50 Subjective Terry reports that he's doing well. He has intermittent pain in his left leg, but it's manageable. He states he had a little bit of nausea last night, but it quickly resolved. He ate breakfast without any nausea or abdominal symptoms. He denies constipation. He denies feeling short of breath. He denies feeling weak or dizzy. He feels safe with ambulation. No fevers. Objective Vital Signs Vital signs Vital Signs Date Time Temp Pulse Resp B/P Pulse Ox O2 Delivery O2 Flow Rate FiO2 02/10/17 07:59 97.7 73 18 125/80 95 CPAP Height (Feet): 5 Height (Inches): 4.00 Weight (Kilograms): 112.900 General General Appearance: Alert, Obese, Orientated x 3, Well Nourished, Well Developed, No Acute Distress Eyes (Brief) Eyes: FOUND: PERRL, other (wears glasses), NOT FOUND: scleral icterus ENMT (Brief) ENMT: FOUND: mucosa moist, NOT FOUND: pharnyx erythema Respiratory (Brief) Respiratory: FOUND: clear all martines, equal bilaterally Cardiovascular (Brief) Cardiac: FOUND: regular rate, regular rhythm Abdomen (Brief) Abdominal: FOUND: BS normo active x4, soft, NOT FOUND: distended, tender Extremities (Brief) Extremity : Extremity Finding: FOUND: other (2+ pedal pulses b/l) Comments left leg has JIM wrap intact Musculoskeletal (Brief) Musculoskeletal: NOT FOUND: deformity Integumentary (Brief) Integumentary: FOUND: dry, pink, warm Psychiatric (Brief) Psychiatric: FOUND: alert, attentive, normal affect, oriented Laboratory Laboratory Laboratory Tests 02/08/17 15:38 02/09/17 04:48 02/10/17 03:56 Laboratory Tests 02/08/17 15:38 02/09/17 04:48 02/10/17 03:56 Microbiology Microbiology Microbiology Date/Time Source Procedure Growth Status 02/08/17 15:44 Peripheral/Iv Start Blood Culture - Preliminary NO GROWTH AFTER 24 HOURS Resulted 02/08/17 15:38 Peripheral/Iv Start Blood Culture - Preliminary NO GROWTH AFTER 24 HOURS Resulted Sepsis Diagnostic Criteria Sepsis Confirmed/Suspected Infection: Yes SIRS Criteria: WBC >=12,000 or <=4,000 Assessment & Plan Problems: (1) Ulcer of lower extremity Status: Acute Qualifiers: Laterality: left Non-pressure ulcer stage: unspecified non-pressure ulcer stage Qualified Codes: L97.929 - Non-pressure chronic ulcer of unspecified part of left lower leg with unspecified severity (2) Cellulitis Status: Acute Qualifiers: Site of cellulitis of extremity: lower extremity Laterality: left (3) Leukocytosis Status: Acute Assessment & Plan: Present on admission (4) Hypertension Status: Chronic (5) Hyperlipidemia Status: Chronic (6) COPD (chronic obstructive pulmonary disease) Status: Chronic (7) Obstructive sleep apnea Status: Chronic (8) BPH (benign prostatic hyperplasia) Status: Chronic (9) Tobacco dependence Status: Chronic (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 Discussed with both Dr. Diego and with Dr. Mckinney - will stop Teflaro and start Vancomycin today. Concerned about increased leukocytosis today - it increased to 12.8. He remains afebrile. Venous lactate and procalcitonin were not elevated. BC are neg so far at [address] Mckinney recommends Aquacel + foam dressing + Jim bandage if he goes home over the weekend; otherwise wound team will see him on Sunday and apply 3M wrap. F/U in wound clinic early next week. Electrolytes are stable. Hemodynamically stable. DVT Prophylaxis: Lovenox Code Status Full Code, unverified Hospital Course Summary Disclaimer The hospital course summary below is not to be considered part of the above Progress Note. Hospital Course Summary Admit patient to inpatient status under the care of Dr. Lang for venous stasis of left lower extremity with cellulitis. Obtain the following laboratory studies on admission. CBC, CMP, venous lactate, pro calcitonin, magnesium, blood culture, pro calcitonin. Also obtain a hemoglobin A1c for laboratory completeness. Initiate patient on Teflaro IV every 12 hours for antimicrobial coverage. Wound team consultation placed for further evaluation and treatment recommendations. Will obtain a venous Doppler of the left lower extremity to rule out acute DVT. Wells criteria score 5 out of 9 with a 53% likelihood of acute thrombosis Lovenox subcutaneous daily for DVT prophylaxis. Zofran as needed for nausea and [place] available as needed for pain control. He may use home CPAP. Given history of sleep apnea Will recheck CBC and BMP tomorrow morning to follow blood counts, renal function and electrolytes Will discuss further plan of care with attending, Dr. Lang. At time of discharge medical care will return to primary care provider, Dr. Sahu 02/09/17 Continue with Teflaro BID for antimicrobial coverage. A preliminary wound culture was received from Dr. Sahu office today. It was taken from the external aspect of the left extremity wound. The initial preliminary culture did indicate staph aureus, however, it is suspicious that this may be a superficial from skin. Appreciate Dr Patel consultation for surgical recommendation. Continue with Aqacell AG with Mepilex and Jim wrap for compression Ultrasound for venous Doppler was negative for acute DVT. Hgb A1c was found to be 6.5. [place] as needed for pain control 02/10/17 Cellulitis - Wound cx from [facility] positive for MRSA, sensitive to Clindamycin, Bactrim, and Vancomycin. Discussed with both Dr. Diego and with Dr. Mckinney - will stop Teflaro and start Vancomycin today. Concerned about increased leukocytosis today - it increased to 12.8. He remains afebrile. Venous lactate and procalcitonin were not elevated. BC are neg so far at [address] Mckinney recommends Aquacel + foam dressing + Jim bandage if he goes home over the weekend; otherwise wound team will see him on Sunday and apply 3M wrap. F/U in wound clinic early next week. Electrolytes are stable. Hemodynamically stable. JAZ DIEGO MD 02/10/171814: Assessment & Plan Assessment 02/10/2017-I reviewed this chart, the patient history, and the MILKING MACHINE MECHANIC's/PA's documented findings as above. We discussed and formulated the assessment and plan as above with the additions below.-Dr. Diego The patient feels well today. He has some mild discomfort in his left foot but states he does not need any pain medication. He is eating and drinking well. He denies any feverishness. He denies any shortness of breath. He continues to use his CPAP at night. He is urinating and having bowel movements without difficulties. The patient is alert and oriented 3 and in no acute distress. Chest is clear to auscultation. Cardio vascular reveals a regular rate and rhythm. Abdomen is soft and nontender. Right lower extremity is free of edema, left lower extremity is wrapped from the foot up to the knee. Vancomycin was started this morning for MRSA foot wound. Possibly switch to oral antibiotics tomorrow if doing well and possible discharge with plans for follow-up as an outpatient. Recheck CBC and basic metabolic profile tomorrow. JEANNETTE LONG APRN February 10, 2017 10:53 JAZ DIEGO MD February 10, 2017 18:15
--- NOTE | 2017-02-10 13:09 | NUR ---
VANCOMYCIN CONSULT: Dx: Cellulitis of Left Lower Extremity. S: 66 yo male was admitted with cellulitis of the lower left extremity (left ankle). A wound culture has indicted that it is MRSA that is sensitive to Clindamycin, Co-Trimoxazole, and Vancomycin. The goal for the vancomycin trough is 15-20 mcg/mL. O: SCr = 0.8 mg/mL Est. CrCl = 84 mL/min A/P: The patient was given Vancomycin 1,000 mg iv @ 1200 today. I have started Vancomycin 1,750 mg iv every 12 hours. The first 1,750 mg iv dose will be given close to the initial 1,000 mg dose to act as a bolus dose. Thanks for Vancomycin Pharmacokinetic Consult, Matteo Morrison RPh
[2017-02-10] MEDS: VANCOMYCIN 1,750 MG in NORMAL SALINE 500 ML IV SCH (14:46)
--- NOTE | 2017-02-10 14:49 | NUR ---
STATUS PT ALERT AND ORIENTED X3. PT ON RA, DENIES SOA. DENIES PAIN AT THIS TIME, DENIES N/V. UP AD ABIMBOLA, PT ABLE TO MAKE NEEDS KNOWN. IVL RIGHT HAND PATENT. ADEQUATE URINE OUTPUT. CALL LIGHT WITHIN REACH.
[2017-02-10 15:22] VITALS: BP 135/77; PULSE 80; RESP 20; TEMP 97; O2SAT 94
--- NOTE | 2017-02-10 17:12 | NUR ---
STATUS PT IS A&OX3. CHEL WRAPS WERE UNWRAPPED AND RE-WRAPPED. DRESSING HAS MINIMAL DRAINAGE NOTED TO IT AND IS INTACT. DOSE OF VANCO WAS JUST COMPLETED. PT CALLS FOR NEEDS. ENCOURAGED TO ELEVATE LLE WHILE IN BED.
[2017-02-10 20:00] VITALS: PULSE 80; RESP 20
[2017-02-10] MEDS: PRAVASTATIN 40 MG TABLET PO SCH (21:37)
[2017-02-11 00:28] VITALS: BP 143/91; PULSE 77; RESP 16; TEMP 98.8; O2SAT 94
[2017-02-11] MEDS: VANCOMYCIN 1,750 MG in NORMAL SALINE 500 ML IV SCH ×2 (02:00→14:08)
[2017-02-11 05:39] LABS: BASOPHILS # (AUTO) 0.1 T/MM3 (0-0.2); BASOPHILS % (AUTO) 0.5 % (0-2); EOSINOPHILS # (AUTO) 0.4 T/MM3 (0-0.5); HCT - HEMATOCRIT 44.7 % (41-53); HGB - HEMOGLOBIN 14.8 GM/DL (13.5-17.5); IMMATURE GRANULOCYTE # (AUTO) 0.13 T/MM3 (0.00-0.03); LYMPHOCYTES # (AUTO) 2.1 T/MM3 (1-4.8); LYMPHOCYTES % (AUTO) 16.5 % (23-45); MEAN CORPUSCULAR HGB 30.1 UUG (26-34); MEAN CORPUSCULAR HGB CONC(MCHC 33.1 GM/DL (31-37); MEAN CORPUSCULAR VOLUME 90.9 UM3 (80-100); MONOCYTES # (AUTO) 1.2 T/MM3 (0-0.8); MONOCYTES % (AUTO) 9.4 % (0-9.0); NEUTROPHILS #(AUTO)-ABSOLUTE 8.9 T/MM3 (1.8-7.7); NEUTROPHILS % (AUTO) 69.6 % (33-66); RED BLOOD COUNT 4.92 M/MM3 (4.50-5.90); WBC - WHITE BLOOD COUNT 12.7 T/MM3 (4.5-11.0)
[2017-02-11 05:44] LABS: ANION GAP 13 MEQ/L (5-15); BUN/CREATININE RATIO 26 RATIO (6-26); CALCIUM 9.4 MG/DL (8.4-10.2); CHLORIDE 104 MEQ/L (98-107); CO2 - CARBON DIOXIDE 25 MEQ/L (22-30); CREATININE 0.8 MG/DL (0.8-1.5); GLOMERULAR FILTRATION RATE 97; GLUCOSE 112 MG/DL (75-110); POTASSIUM 3.8 MEQ/L (3.6-5); SODIUM 142 MEQ/L (134-144)
[2017-02-11 07:38] VITALS: BP 134/75; PULSE 76; RESP 16; TEMP 96.7; O2SAT 93
[2017-02-11] MEDS: ASPIRIN 325 MG TABLET PO SCH (08:25)
[2017-02-11] MEDS: ENOXAPARIN 40 MG/0.4 ML INJECTION SQ SCH (08:26)
--- NOTE | 2017-02-11 10:30 | PNPDOC ---
Subjective Date DATE: 02/11/17 TIME: 10:24 Subjective Patient states that he's feeling okay today. He denies any fevers, chills or sweats. He is eating and drinking okay. He states when he gets up to walk he still has pain in his foot and ankle but it's a little better than when he was admitted. He continues to use his CPAP at night without difficulties. He denies any chest pains or abdominal pain. Objective Vital Signs Vital signs Vital Signs Date Time Temp Pulse Resp B/P Pulse Ox O2 Delivery O2 Flow Rate FiO2 02/11/17 07:38 96.7 76 16 134/75 93 Room Air GEN-alert, oriented, no acute distress CV-regular rate and rhythm CHEST-clear to auscultation bilaterally ABD-soft, nontender, nondistended with positive bowel sounds -no Rausch EXT-no edema, wound on the left ankle is covered with a dressing NEURO-no focal deficits SKIN-warm and dry. He has a mild rash on his back which looks like a heat rash. No rash elsewhere on the chest, arms or legs. Height (Feet): 5 Height (Inches): 4.00 Weight (Kilograms): 112.700 Laboratory Laboratory Laboratory Tests 02/10/17 03:56 02/11/17 04:44 Laboratory Tests 02/10/17 03:56 02/11/17 04:44 Microbiology Microbiology Microbiology Date/Time Source Procedure Growth Status 02/08/17 15:44 Peripheral/Iv Start Blood Culture - Preliminary NO GROWTH AFTER 48 HOURS Resulted 02/08/17 15:38 Peripheral/Iv Start Blood Culture - Preliminary NO GROWTH AFTER 48 HOURS Resulted Sepsis Diagnostic Criteria Sepsis Confirmed/Suspected Infection: Yes SIRS Criteria: WBC >=12,000 or <=4,000 Assessment & Plan Problems: (1) Ulcer of lower extremity Status: Acute Qualifiers: Laterality: left Non-pressure ulcer stage: unspecified non-pressure ulcer stage Qualified Codes: L97.929 - Non-pressure chronic ulcer of unspecified part of left lower leg with unspecified severity (2) Cellulitis Status: Acute Qualifiers: Site of cellulitis of extremity: lower extremity Laterality: left (3) Leukocytosis Status: Acute Assessment & Plan: Present on admission (4) Hypertension Status: Chronic (5) Hyperlipidemia Status: Chronic (6) COPD (chronic obstructive pulmonary disease) Status: Chronic (7) Obstructive sleep apnea Status: Chronic (8) BPH (benign prostatic hyperplasia) Status: Chronic (9) Tobacco dependence Status: Chronic (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 Vancomycin was initiated yesterday. White count continues to be elevated. Patient remains afebrile. Hypertension is well controlled COPD is stable Continue CPAP for obstructive sleep apnea Plan Continue IV Vanco and reevaluate wound tomorrow by wound care team. If it appears improved will likely dismiss on oral antibiotics, likely clindamycin which she has taken in the past without difficulties. Continue Lovenox for DVT prophylaxis Continue other home medications. Recheck CBC and BMP tomorrow DVT Prophylaxis: Lovenox Code Status Full Code, unverified Hospital Course Summary Disclaimer The hospital course summary below is not to be considered part of the above Progress Note. Hospital Course Summary Admit patient to inpatient status under the care of Dr. Lang for venous stasis of left lower extremity with cellulitis. Obtain the following laboratory studies on admission. CBC, CMP, venous lactate, pro calcitonin, magnesium, blood culture, pro calcitonin. Also obtain a hemoglobin A1c for laboratory completeness. Initiate patient on Teflaro IV every 12 hours for antimicrobial coverage. Wound team consultation placed for further evaluation and treatment recommendations. Will obtain a venous Doppler of the left lower extremity to rule out acute DVT. Wells criteria score 5 out of 9 with a 53% likelihood of acute thrombosis Lovenox subcutaneous daily for DVT prophylaxis. Zofran as needed for nausea and [place] available as needed for pain control. He may use home CPAP. Given history of sleep apnea Will recheck CBC and BMP tomorrow morning to follow blood counts, renal function and electrolytes Will discuss further plan of care with attending, Dr. Lang. At time of discharge medical care will return to primary care provider, Dr. Sahu 02/09/17 Continue with Teflaro BID for antimicrobial coverage. A preliminary wound culture was received from Dr. Sahu office today. It was taken from the external aspect of the left extremity wound. The initial preliminary culture did indicate staph aureus, however, it is suspicious that this may be a superficial from skin. Appreciate Dr Patel consultation for surgical recommendation. Continue with Aqacell AG with Mepilex and Jim wrap for compression Ultrasound for venous Doppler was negative for acute DVT. Hgb A1c was found to be 6.5. [place] as needed for pain control 02/10/17 Cellulitis - Wound cx from [facility] positive for MRSA, sensitive to Clindamycin, Bactrim, and Vancomycin. Discussed with both Dr. Diego and with Dr. Mckinney - will stop Teflaro and start Vancomycin today. Concerned about increased leukocytosis today - it increased to 12.8. He remains afebrile. Venous lactate and procalcitonin were not elevated. BC are neg so far at [address] Mckinney recommends Aquacel + foam dressing + Jim bandage if he goes home over the weekend; otherwise wound team will see him on Sunday and apply 3M wrap. F/U in wound clinic early next week. Electrolytes are stable. Hemodynamically stable. 02/10/2017-I reviewed this chart, the patient history, and the HVAC TECHNICIAN's/PA's documented findings as above. We discussed and formulated the assessment and plan as above with the additions below.-Dr. Diego The patient feels well today. He has some mild discomfort in his left foot but states he does not need any pain medication. He is eating and drinking well. He denies any feverishness. He denies any shortness of breath. He continues to use his CPAP at night. He is urinating and having bowel movements without difficulties. The patient is alert and oriented 3 and in no acute distress. Chest is clear to auscultation. Cardio vascular reveals a regular rate and rhythm. Abdomen is soft and nontender. Right lower extremity is free of edema, left lower extremity is wrapped from the foot up to the knee. Vancomycin was started this morning for MRSA foot wound. Possibly switch to oral antibiotics tomorrow if doing well and possible discharge with plans for follow-up as an outpatient. Recheck CBC and basic metabolic profile tomorrow. JAZ DIEGO MD February 11, 2017 10:30
--- NOTE | 2017-02-11 13:50 | NUR ---
VANCOMYCIN CONSULT: Vancomycin Trough = 15.3 mcg/ml. Today's SCr = 0.8 mg/dl. Will continue Vancomycin 1750 mg IV q12hrs. Will continue to monitor and make adjustments accordingly. Thank you.
[2017-02-11] MEDS: NORMAL SALINE 500 ML IV PRN (14:08)
[2017-02-11 16:03] VITALS: BP 134/73; PULSE 85; RESP 24; TEMP 97.8; O2SAT 95
--- NOTE | 2017-02-11 17:50 | NUR ---
STATUS PT IS A&OX3. NO PRN'S NEEDED TODAY. PT UP AD ABIMBOLA. DENIES PAIN. DRESSING INTACT WITH MINIMAL DRAINAGE. PT CALLS FOR NEEDS. PT SITTING UP EATING SUPPER AT THIS TIME.
[2017-02-11 20:00] VITALS: RESP 18
[2017-02-11] MEDS: PRAVASTATIN 40 MG TABLET PO SCH (21:04)
[2017-02-11 23:39] VITALS: BP 149/79; PULSE 83; RESP 28; TEMP 98.3; O2SAT 94
[2017-02-12] MEDS: VANCOMYCIN 1,750 MG in NORMAL SALINE 500 ML IV SCH (01:38)
[2017-02-12 05:18] LABS: BASOPHILS # (AUTO) 0.1 T/MM3 (0-0.2); BASOPHILS % (AUTO) 0.6 % (0-2); EOSINOPHILS # (AUTO) 0.4 T/MM3 (0-0.5); EOSINOPHILS % (AUTO) 3.1 % (0-4); HCT - HEMATOCRIT 42.5 % (41-53); HGB - HEMOGLOBIN 14.3 GM/DL (13.5-17.5); IMMATURE GRANULOCYTE # (AUTO) 0.16 T/MM3 (0.00-0.03); IMMATURE GRANULOCYTE % (AUTO) 1.3 % (0.0-0.5); LYMPHOCYTES % (AUTO) 15.9 % (23-45); MEAN CORPUSCULAR HGB 30.8 UUG (26-34); MEAN CORPUSCULAR HGB CONC(MCHC 33.6 GM/DL (31-37); MEAN CORPUSCULAR VOLUME 91.4 UM3 (80-100); MEAN PLATELET VOLUME 7.7 UM3 (9.4-12.4); MONOCYTES # (AUTO) 1.3 T/MM3 (0-0.8); MONOCYTES % (AUTO) 10.4 % (0-9.0); NEUTROPHILS #(AUTO)-ABSOLUTE 8.6 T/MM3 (1.8-7.7); NEUTROPHILS % (AUTO) 68.7 % (33-66); RED BLOOD COUNT 4.65 M/MM3 (4.50-5.90); WBC - WHITE BLOOD COUNT 12.5 T/MM3 (4.5-11.0)
--- NOTE | 2017-02-12 05:23 | NUR ---
SHIFT SUMMARY: PT IS A&OX3, FRIENDLY AND COOPERATIVE, ON ROOM AIR, WEARS C-PAP AT NIGHT, UP AT ABIMBOLA, IV LOCKED, Q8 VITALS, REGULAR DIET, DENIES PAIN OR SOA, DRESSING INTACT AND NO DRAINAGE OBSERVED TO LEFT LOWER LEG (LEG ELEVATED WITH A PILLOW). CALL LIGHT WITHIN REACH, BED ALARM ON.
[2017-02-12 05:30] LABS: ANION GAP 11 MEQ/L (5-15); BUN/CREATININE RATIO 28 RATIO (6-26); CALCIUM 8.9 MG/DL (8.4-10.2); CHLORIDE 106 MEQ/L (98-107); CO2 - CARBON DIOXIDE 25 MEQ/L (22-30); CREATININE 0.8 MG/DL (0.8-1.5); GLOMERULAR FILTRATION RATE 97; GLUCOSE 134 MG/DL (75-110); SODIUM 142 MEQ/L (134-144)
[2017-02-12 07:26] VITALS: BP 154/84; PULSE 77; RESP 22; TEMP 96.8; O2SAT 95
[2017-02-12] MEDS: ASPIRIN 325 MG TABLET PO SCH (08:38)
[2017-02-12] MEDS: ENOXAPARIN 40 MG/0.4 ML INJECTION SQ SCH (08:38)
[2017-02-12 08:49] VITALS: RESP 20
[2017-02-12 08:56] LABS: CORRECTED WHITE BLOOD COUNT 4.7 T/MM3 (4.5-11.0); HCT - HEMATOCRIT 42.5 % (41-53); HGB - HEMOGLOBIN 14.3 GM/DL (13.5-17.5); MEAN CORPUSCULAR HGB 30.8 UUG (26-34); MEAN CORPUSCULAR HGB CONC(MCHC 33.6 GM/DL (31-37); MEAN CORPUSCULAR VOLUME 91.4 UM3 (80-100); MEAN PLATELET VOLUME 7.7 UM3 (9.4-12.4); RED BLOOD COUNT 4.65 M/MM3 (4.50-5.90); WBC - WHITE BLOOD COUNT 12.5 T/MM3 (4.5-11.0)
[2017-02-12 09:01] LABS: BAND NEUTROPHILS # 0.3 T/MM3; MONOCYTES # (MANUAL) 0.3 T/MM3 (0-0.8); TOTAL CELLS COUNTED 100 %
--- NOTE | 2017-02-12 10:23 | NUR ---
HOME MEDICATIONS PT REPORTED TO THIS NURSE THAT HE TOOK ALEVE AND HIS MULTIVITAMIN WITH MINERALS AT 0730 THIS MORNING, BOTH OF WHICH HE TYPICALLY TAKES WHEN HE IS AT HOME. BOTH MEDS ARE LISTED ON PT'S RECONCILED MEDICATION LIST. EDUCATION PROVIDED AND PT INSTRUCTED NOT TO TAKE HOME MEDS WHILE IN THE HOSPITAL DUE TO MEDS NOT BEING CONTINUED BY AT THIS TIME. PT EXPRESSES UNDERSTANDING. JEANNETTE LONG APRN NOTIFIED, WILL CONTINUE TO MONITOR.
--- NOTE | 2017-02-12 10:34 | PDWOUND ---
Wound Documentation Wound Management Wound : Location Modifier: Left, Medial Wound Location: Ankle Wound Type: Stasis Ulcer Wound Dressing Frequency: two times per week Wound Duration: 3 days Wound Dressing Status: FOUND: Moist Wound Drainage Amount: Moderate Wound Drainage Description: Purulent Wound Drainage Odor: None/Absent Wound General Appearance: FOUND Unapproximated Wound Bed: gran red Periwound Description: Bright Red, Shiny, Taut Wound Length (cm): 2.4 Wound Width (cm): 4.2 Wound Depth (cm): 0.2 Exposed: subtissue Wound Cleanser: NS Comments Orders received to go undress pt's wound Bridget Suarez APRN in room to assist and at this time large amounts of purulent drainage ran out. Informed Dr Mckinney who asks to culture and wait for him to see pt prior drsing wound. Edema today is 23.4 cm Foot, 22.8cm Ankle, 32.6 cm Calf. KANDI DIAZ RN February 12, 2017 10:34
[2017-02-12] MEDS ORDERED: ACET-2321 PO (11:41)
[2017-02-12] MEDS ORDERED: SULF1TAB42 PO ×2 (11:41→12:19)
--- NOTE | 2017-02-12 11:56 | DSPDOC ---
JEANNETTE LONG [employer] 02/12/17 1147: General Date Date DATE: 02/12/17 TIME: 11:44 Attending Physician Catherine Diego MD Admitting Physician Catherine Diego MD Consulting Physician Randolph Turner MD,Facs,Cws Admitting Diagnosis Left lower extremity ulcer with cellulitis Discharge Diagnosis Left lower extremity ulcer with cellulitis, MRSA positive Laboratory Laboratory Tests Test 02/11/17 04:44 02/11/17 13:06 02/12/17 05:05 White Blood Count 12.7T/MM3 (4.5-11.0) 12.5T/MM3 (4.5-11.0) Red Blood Count 4.92M/MM3 (4.50-5.90) 4.65M/MM3 (4.50-5.90) Hemoglobin 14.8GM/DL (13.5-17.5) 14.3GM/DL (13.5-17.5) Hematocrit 44.7% (41-53) 42.5% (41-53) Mean Corpuscular Volume 90.9UM3 (80-100) 91.4UM3 (80-100) Mean Corpuscular Hemoglobin 30.1UUG (26-34) 30.8UUG (26-34) Mean Corpuscular Hemoglobin Concent 33.1GM/DL (31-37) 33.6GM/DL (31-37) RDW Standard Deviation 50.5FL (36.9-50.2) 50.7FL (36.9-50.2) Platelet Count 294T/MM3 (130-400) 271T/MM3 (130-400) Mean Platelet Volume 8.0UM3 (9.4-12.4) 7.7UM3 (9.4-12.4) Immature Granulocyte % (Auto) 1.0% (0.0-0.5) 1.3% (0.0-0.5) Neutrophils (%) (Auto) 69.6% (33-66) 68.7% (33-66) Lymphocytes (%) (Auto) 16.5% (23-45) 15.9% (23-45) Monocytes (%) (Auto) 9.4% (0-9.0) 10.4% (0-9.0) Eosinophils (%) (Auto) 3.0% (0-4) 3.1% (0-4) Basophils (%) (Auto) 0.5% (0-2) 0.6% (0-2) Absolute Immature Granulocyte (auto 0.13T/MM3 (0.00-0.03) 0.16T/MM3 (0.00-0.03) Absolute Neutrophils (auto) 8.9T/MM3 (1.8-7.7) 8.6T/MM3 (1.8-7.7) Absolute Lymphocytes (auto) 2.1T/MM3 (1-4.8) 2.0T/MM3 (1-4.8) Absolute Monocytes (auto) 1.2T/MM3 (0-0.8) 1.3T/MM3 (0-0.8) Absolute Eosinophils (auto) 0.4T/MM3 (0-0.5) 0.4T/MM3 (0-0.5) Absolute Basophils (auto) 0.1T/MM3 (0-0.2) 0.1T/MM3 (0-0.2) Turbidity < 20 (0-20) < 20 (0-20) Sodium Level 142MEQ/L (134-144) 142MEQ/L (134-144) Potassium Level 3.8MEQ/L (3.6-5) 4.0MEQ/L (3.6-5) Chloride Level 104MEQ/L (98-107) 106MEQ/L (98-107) Carbon Dioxide Level 25MEQ/L (22-30) 25MEQ/L (22-30) Anion Gap 13MEQ/L (5-15) 11MEQ/L (5-15) Blood Urea Nitrogen 21.0MG/DL (9-20) 22.0MG/DL (9-20) Creatinine 0.8MG/DL (0.8-1.5) 0.8MG/DL (0.8-1.5) Glomerular Filtration Rate Calc 97 97 BUN/Creatinine Ratio 26RATIO (6-26) 28RATIO (6-26) Glucose Level 112MG/DL (75-110) 134MG/DL (75-110) Calculated Osmolality 277MOSM/KG (261-280) 278MOSM/KG (261-280) Calcium Level 9.4MG/DL (8.4-10.2) 8.9MG/DL (8.4-10.2) Icterus Index < 2 (0-7) < 2 (0-7) Chemistry Specimen Hemolysis < 15 (0-25) 34 (0-25) Vancomycin Level Trough 15.25UG/ML (15-20) Corrected White Blood Count 4.7T/MM3 (4.5-11.0) Neutrophils % (Manual) 64.0% (33-66) Band Neutrophils % 7.0% (0-6) Lymphocytes % (Manual) 21.0% (23-45) Monocytes % (Manual) 7.0% (0-9.0) Eosinophils % (Manual) 1.0% (0-4) Absolute Neutrophils (Manual) 3.0T/MM3 (1.8-7.7) Band Neutrophils # 0.3T/MM3 Lymphocytes # (Manual) 1.0T/MM3 (1-4.8) Monocytes # (Manual) 0.3T/MM3 (0-0.8) Eosinophils # (Manual) 0.0T/MM3 (0-0.5) Red Cell Morphology Comment Normal Microbiology Wound cx from [facility] positive for MRSA, sensitive to Clindamycin, Bactrim, and Vancomycin Blood cultures were negative at 72 hours Radiology Left lower extremity venous duplex: Negative for DVT. Prominent lymph node in the left groin measuring up to 1 cm, could be reactive. History of Present Illness Patient is a 66-year-old male who presented to his primary care provider, Dr. Rl Sahu today for evaluation of ulcer to the left lower extremity. Patient has had a history of venous stasis ulcers in the past. He states that approximately 5 days ago he noticed a small blister in the medial aspect of the left foot. He states that he started wearing his compression stockings and popped the blister. Over the last 48 hours this area has become more red, swollen and tender. Today he was unable to ambulate without significant pain. Thus presented to primary care for further evaluation and treatment. He was evaluated at [facility], however, due to the concern for further inpatient workup the hospitalist services were contacted directly and accepted patient for direct admission as an inpatient for further eval patient and treatment. It is expected that his stay will be greater than 2 overnights. Initial laboratory studies were obtained on admission. He was found to have an elevated white count at 12.5, hemoglobin 14.3, hematocrit 42.6, platelet count 282, 67% neutrophils. Sodium is normal at 143, potassium 4.0, BUN 22, creatinine 0.8, glucose 141. Venous lactate is normal at 1.3. Hospital Course Mr. Balderrama was directly admitted to inpatient status on 02/08/17. Labs were obtained, showing leukocytosis with a white count of 12.5, but other sepsis markers were negative. The leukocytosis persisted throughout the hospitalization , but he remained afebrile. Dr. Turner was consulted for wound management. He was started on Teflaro initially for antimicrobial coverage, and on 02/10/17 his antibiotics were changed to vancomycin based on positive MRSA culture from [facility] clinic. A venous Doppler of the left lower extremity was obtained, and this was negative for DVT. Hemoglobin A1c was 6.5%. Blood cultures remained negative throughout his hospital stay. Electrolytes were unremarkable. His wound was reassessed on 02/12/17, and Dr. Turner recommended Aquacel silver applied to the wound bed, covered with a large Mepilex and then wrapped with an Jim wrap. This dressing is scheduled to be changed on a 3 day basis. Follow up with wound clinic on Sunday, February 14. Provided a prescription for 7-day course of Bactrim to cover for MRSA. Recommend to have CBC and BMP reevaluated on February 14. Follow up with Dr. Sahu, as well as Dr. Turner. The patient was discharged home in stable condition. For more details regarding hospital course please refer to respective documents. Time spent in DC activities: 40 minutes. 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 Prov:CATHERINE DIEGO MD 02/12/17 Acetaminophen (Tylenol) 325 Mg Tablet, 325-650 MG PO Q5H Y for DISCOMFORT for 30 Days, TAB Prov:MERCEDESJEANNETTE HARRIS Suzanna [employer] 02/12/17 Reported Medications Naproxen Sodium (Aleve) 220 Mg Capsule, 1 CAP PO Y for PAIN, CAP 02/08/17 Multivitamins W-Minerals (Multivitamin) 1 Cap Capsule, 1 CAP PO HS 10/26/08 Aspirin (Aspirin) 325 Mg Tablet, 325 MG PO DAILY 10/23/08 Pravastatin Sodium (Pravastatin Sodium) 40 Mg Tablet, 40 MG PO HS 10/26/08 Discontinued Scripts Clindamycin HCl (Clindamycin HCl) 150 Mg Capsule, 3 CAP PO TID for 7 Days, #63 CAP TAKE WITH A FULL GLASS OF WATER TO AVOID ESOPHAGEAL IRRITATION. Supervising physician Dr. Abraham Romero [employer] [facility] [address] [place] [address] Prov:SAVANNA ROMERO [employer] 11/19/16 Face to Face Encounter I met with patient on the day of dismissal and discussed follow up appointments , medications, and safety plan. Discharge Disposition Discharged home, stable Copies To 1: RANDOLPH TURNER MD, FACS, CWS Copies To 2: RL SAHU MD Documentation Requirements Documenting Diagnosis BMI Low or High Outpatient Surgery - Inpatient Comments Time spent in discharge: 40 minutes. BMI Low or High Assoc. dx for low or high BMI: Morbid obesity >40 CATHERINE DIEGO MD 02/12/17 1222: Hospital Course 02/12/2017-I reviewed this chart, the patient history, and the [employer]'s/PA's documented findings as above. We discussed and formulated the assessment and plan as above with the additions below.-Dr. Diego The patient states he's feeling well today. He thinks he can get along okay at home. He is eating and drinking well. He denies any shortness of breath. He is not requiring any pain medications. He states he is up walking without too much difficulties. On exam he is alert and oriented and in no acute distress. Chest is clear to auscultation. Cardiovascular reveals a regular rate and rhythm. Abdomen is soft and nontender. Extremities are free of edema. Ankle wound is covered. I spoke with Dr. Turner who evaluated his wound today and thought it was looking good. He recommended dismissal to home on oral Bactrim for 2 weeks. He will have close follow-up in the wound clinic on Sunday. The patient was notified that if he should develop a rash, oral sores, severe diarrhea, fevers, increased ankle pain or any other concerns he should notify his doctor right away. At this time the patient appears to be stable for dismissal to home with close follow-up planned. I will notify Dr. Sahu of dismissal plans. Problems: Home Meds Active Scripts Sulfamethoxazole/Trimethoprim (Bactrim Ds Tablet) 1 Each Tablet, 1 TAB PO BID for 14 Days, #28 TAB Take 1 tablet, by mouth, 2 times a day. Prov:CATHERINE DIEGO MD 02/12/17 Acetaminophen (Tylenol) 325 Mg Tablet, 325-650 MG PO Q5H Y for DISCOMFORT for 30 Days, TAB Prov:JEANNETTE LONG APRN 02/12/17 Reported Medications Naproxen Sodium (Aleve) 220 Mg Capsule, 1 CAP PO Y for PAIN, CAP 02/08/17 Multivitamins W-Minerals (Multivitamin) 1 Cap Capsule, 1 CAP PO HS 10/26/08 Aspirin (Aspirin) 325 Mg Tablet, 325 MG PO DAILY 10/23/08 Pravastatin Sodium (Pravastatin Sodium) 40 Mg Tablet, 40 MG PO HS 10/26/08 Discontinued Scripts Clindamycin HCl (Clindamycin HCl) 150 Mg Capsule, 3 CAP PO TID for 7 Days, #63 CAP TAKE WITH A FULL GLASS OF WATER TO AVOID ESOPHAGEAL IRRITATION. Supervising physician Dr. Abraham Romero Signal [employer] [facility] [address] [facility] [phone] Prov:SAVANNA ROMERO APRN 11/19/16 Copies To 1: RANDOLPH TURNER MD, FACS, CWS Copies To 2: RL SAHU MD, KAREN D APRN February 12, 2017 11:47 CATHERINE DIEGO MD February 12, 2017 12:22
--- NOTE | 2017-02-12 12:00 | NUR ---
STATUS PT ALERT AND ORIENTED X3. PT ON RA, DENIES SOA. RATES PAIN 3/10, DENIES NEED FOR PAIN MEDICATION AT THIS TIME. DENIES N/V. UP AD ABIMBOLA, STEADY ON FEET. DRESSING TO LEG C/D/I. IVL RIGHT HAND PATENT. ADEQUATE URINE OUTPUT. PT ABLE TO MAKE NEEDS KNOWN. CALL LIGHT WITHIN REACH.
--- NOTE | 2017-02-12 12:33 | NUR ---
PRESCRIPTION CALLED IN ORDERED TO PREFERRED PHARMACY, PHARMACIST [facility]. NO CONCERNS AT THIS TIME.
--- NOTE | 2017-02-12 13:15 | NUR ---
DISMISSAL PT DISMISSED BY WHEELCHAIR TO HOME AT THIS TIME, VERBAL OKAY FROM DR. SCHULTZ THAT PT MAY DRIVE HOME. DISMISSAL INSTRUCTIONS REVIEWED, QUESTIONS ANSWERED. PT EXPRESSES UNDERSTANDING OF DISMISSAL INSTRUCTIONS, INCLUDING BUT NOT LIMITED TO, S/S TO REPORT TO WELL MEDICATION REGIMEN. FOLLOW-UP APPOINTMENTS SCHEDULED WITH DR. BENAVIDES, PT TO SCHEDULE FOLLOW-UP WITH DR. GRIMES IN 1 WEEK, EXPRESSES UNDERSTANDING. PT EXPRESSES UNDERSTANDING OF KEEPING LEG DRESSING C/D/I. SKIN SURROUNDING IV SITE PINK, APPEARS IRRITATED AFTER TAPE WAS REMOVED. PT INSTRUCTED TO MONITOR SITE, EXPRESSES UNDERSTANDING. IV DC'D, BELONGINGS GATHERED.
--- NOTE | 2017-02-12 17:53 | PNF ---
DATE OF SERVICE 02/12/2017 FINDINGS Mr. Balderrama was seen earlier this morning on rounds. He was in good spirits. He was requesting to go home. EXAM VITAL SIGNS: Afebrile, normotensive. Last recorded vitals include temperature 96.8, pulse 77, respirations 20, blood pressure 154/84, SAO2 95% on CPAP earlier this morning. HEENT: Normocephalic. Pupils are equally round and react to light and accommodation. CHEST: Clear to auscultation bilaterally. HEART: Regular rate and rhythm. Normal S1 and S2 without gallops, murmurs or clicks. EXTREMITIES: Attention was focused to left lower extremity/medial malleolar region. The patient's ulceration has become deeper in nature since I saw him on Sunday. The ulcer itself is about 4 cm in diameter. Underlying dermis appears to be intact throughout the majority of the ulcer. Epidermis is void. There was one small 5-mm focus where the ulcer does appear to be full-thickness in nature. The periwound skin is not erythematous in nature. Skin is hemosiderin-laden consistent with chronic venous hypertension. LABORATORY/RADIOGRAPHIC EVALUATION The patient's white count remains slightly elevated at 12.5. Slight left shift with 7% bands. BMP was obtained and found to be essentially within normal limits. Wound culture has been reported revealing evidence for MRSA. ASSESSMENT 66-year-old gentleman with chronic venous hypertension with new-onset venous ulcer disease involving left medial malleolar region with associated MRSA infection. PLAN At this point in time I do not see the patient has marked surrounding cellulitis. He is afebrile in nature. I do believe he could be discharged to home on some additional oral antibiotics at this time. Recommend sending him home on Bactrim DS one p.o. b.i.d. over the next few weeks. Will have nursing staff today place Silver Aquacel overlying the wound followed by a foam dressing. Will then have nursing apply Jim wrap. I would like to see the patient back in our wound center on Sunday or of this week for recheck of his wound dressings. I would hold off at this point in time placing multilayer 3M wrap as a result of the wound infection that is present. This will allow us to better visualize the wound over time. COURTNEY
== END 2017-02-12 14:13 | disposition home or self-care (01) | DRG 603 ==
LOC: MED 14:52
PROVIDERS: ADMIT Hospitalist; ATTEND Internal Medicine
DX: L03.116 Cellulitis of left lower limb (principal); I87.312 Chronic venous hypertension (idiopathic) with ulcer of left lower extremity; L97.321 Non-pressure chronic ulcer of left ankle limited to breakdown of skin; I10 Essential (primary) hypertension; E78.5 Hyperlipidemia, unspecified; J44.9 Chronic obstructive pulmonary disease, unspecified; B95.62 Methicillin resistant Staphylococcus aureus infection as the cause of diseases classified elsewhere; G47.33 Obstructive sleep apnea (adult) (pediatric); F17.200 Nicotine dependence, unspecified, uncomplicated; N40.0 Benign prostatic hyperplasia without lower urinary tract symptoms; F32.9 Major depressive disorder, single episode, unspecified; Z86.718 Personal history of other venous thrombosis and embolism; Z79.82 Long term (current) use of aspirin
CPT/HCPCS: 36415; 80048; 80053; 80202; 81003; 83036; 83605; 83735; 84145; 85007; 85025; 85027; 87040; 87070; 87075; 87147; 87186; 87205; 99406